=== PATIENT | female | born 1990 | race Caucasian/White ===

== ENCOUNTER → 2016-08-07 | Outpatient (CLI) | payer BC ==
[~2016-08-07] MED LIST: BCP TD
== END ==
LOC: MC.RAD 07:30
DX: Z12.39 Encounter for other screening for malignant neoplasm of breast (principal)

== ENCOUNTER → 2018-03-17 | Outpatient (CLI) | payer BC | LOC: MHCPAIN 14:35 | DX: G89.29 Other chronic pain (principal); M47.817 Spondylosis without myelopathy or radiculopathy, lumbosacral region; M53.3 Sacrococcygeal disorders, not elsewhere classified | CPT/HCPCS: G0463 ==

== ENCOUNTER → 2018-04-01 | Outpatient (CLI) | payer BC | LOC: MHCPAIN 12:53 | DX: M47.817 Spondylosis without myelopathy or radiculopathy, lumbosacral region (principal); M54.16 Radiculopathy, lumbar region | CPT/HCPCS: J1040; Q9967 ==

== ENCOUNTER → 2018-05-04 | Outpatient (CLI) | payer BC | LOC: MHCPAIN 08:10 | DX: G89.29 Other chronic pain (principal); M47.817 Spondylosis without myelopathy or radiculopathy, lumbosacral region; M53.3 Sacrococcygeal disorders, not elsewhere classified | CPT/HCPCS: G0463 ==

== ENCOUNTER 2021-01-04 14:20 | Inpatient (IN) | payer BC ==
[2021-01-04] VITALS (28 sets, daily range): BP systolic 104–164; BP diastolic 56–104; PULSE 81–113; TEMP 97.7–98.3
[~2021-01-04] VITALS: Ht 162.6 cm; Wt 91.8 kg
[2021-01-04] MEDS ORDERED: PRENATAL TABLET PO (14:40)
[2021-01-04] MEDS ORDERED: CALCIUM-500 5001 CTB PO (14:40)
[2021-01-04] MEDS ORDERED: VITAMINC500CH (14:41)
[2021-01-04] MEDS ORDERED: ZOLOFT 25MG25 MG PO (14:41)
--- NOTE | 2021-01-04 14:53 | NUR ---
1430: PT AMBULATORY TO UNIT W/ SPOUSE PAULINE. C/O SROM. ESCORTED TO LR4 AND ORIENTED TO ROOM. CLEAN GOWN ON, EFM/TOCO APPLIED, VS OBTAINS, ASSESSMENTS COMPLETED, POC DISCUSSED. AMNITRACE NEGATIVE. WILL CONTINUE TO MONITOR
[2021-01-04 16:00] LABS: BASO % 0.2 % (0.0-2.0); EOS % 0.3 % (0-4.0); GRAN # 9.8 K/mm3 (1.4-6.5); HEMOGLOBIN 11.5 g/dl (12.5-16.0); LYMPH # 1.8 K/mm3 (1.2-3.4); LYMPH % 14.4 % (20.0-51.0); MEAN CELL VOLUME 86 fl (80.0-100.0); MEAN CORPUSCULAR HEMOGLOBIN 29 pg (27.0-31.0); MEAN CORPUSCULAR HGB CONC 33 g/dl (33.0-37.0); MEAN PLATELET VOLUME 11.8 fl (7.4-10.4); MONO # 0.7 K/mm3 (0.1-0.6); MONO % 5.9 % (1.7-9.3); PLATELET COUNT 235 K/mm3 (130-400); RED BLOOD COUNT 4.04 M/mm3 (4.10-5.30)
[2021-01-04 16:04] LABS: HEMATOCRIT 34.6 % (37.0-47.0)
--- NOTE | 2021-01-04 16:38 | NUR ---
1505: PT. UP TO BATHROOM AND BACK TO BED. STILL C/O LEAKING FLUID. REDID AMNISURE AND IT WAS +. SVE WAS ATTEMPTED. 2CM/-1 STATION. DIFFICULT SVE DUE TO PT. TOLERANCE. IV STARTED, CONSNETS DONE, DISCUSSED POC. 1610: PIT STARTED PER PROTOCOL PER DR. BARRETT
--- NOTE | 2021-01-04 18:18 | NUR ---
FHT: 1500: PT UP TO BR 1515: PT UP TO BR 1600: PT UP TO BR 1615: BROKEN STRIP NOTED 1630: BROKEN STRIP NOTED 1700: PT UP TO BR 1745: PT UP TO BR 1815: PT UP TO BR
--- NOTE | 2021-01-04 23:13 | NUR ---
2255: THIS RN GAVE REPORT TO JOSE RN. PT IN STABLE CONDITION GETTING READY FOR AN EPIDURAL. CARE RELINQUISHED AT THIS TIME
--- NOTE | 2021-01-04 23:25 | NUR ---
2313 SHANDA Cadet to room to place epidural. Patient sits upright on the edge of the bed for this procedure. FHR difficult to monitor in this position and is intermittently tracing. 2325 Test dose administered by SHANDA Cadet. See anesthesia record for details of epidural placement. 2330 Patient wedged to left side.
[2021-01-05] VITALS (53 sets, daily range): BP systolic 90–135; BP diastolic 54–86; PULSE 85–110; TEMP 97.5–101
--- NOTE | 2021-01-05 05:18 | NUR ---
ANCEF 2 GMS GIVEN IVP AT 0450 OVER 5 MINUTES, PT POSITIONED LEFT TILT WITH PEANUT BALL IN PLACE
--- NOTE | 2021-01-05 05:33 | NUR ---
PT BECOMING UPCOMFORTABLE AGAIN, WITH NO RELIEF FROM EPIDURAL TRANSIT CLERK DOSES. SVE /1, MYNOR LAND NOTIFIED PT UNCOMFORTABLE AGAIN, STATES THAT HE WILL BE IN
--- NOTE | 2021-01-05 06:25 | NUR ---
This RN receives report from Silvano BANUELOS. Patient resting and has no needs at this time. 0720: Dr. Alvarez at bedside assessing patient and FHR strip. Discussing the potential need for eventually. SVE-/-2 and plan of care discussed. FHR baseline increasing to 155-160bpm and Roles aware.
--- NOTE | 2021-01-05 06:35 | NUR ---
PROFESSIONAL NURSING ASSISTANT AT BEDSIDE, HAS GIVEN BOLUS WITH NO RELIEF
--- NOTE | 2021-01-05 06:39 | NUR ---
0602 UP ON SIDE OF BED FOR EPIDURAL 0611 TEST DOSE
--- NOTE | 2021-01-05 06:44 | NUR ---
FHT'S INDETERMINENT DUE TO MATERNAL POSITION FOR EPIDURAL, PT TO RIGHT TILT FOLLOWING EPIDURAL PLACEMENT
--- NOTE | 2021-01-05 08:40 | NUR ---
FHR baseline 170-175bpm with subtle late decelerations minimal variability noted. Temperature of patient-101.0 F and Roles on unit and updated. 0900: Roles at bedside and SVE-unchanged. Roles discussing the need for delivery due to no change/FHR/maternal temperature. Risks and benefits discussed. 0910: Patient agrees with plan of csection. Pitocin off at this time. 919: Helio LAND at bedside dosing epidural and talking with patient about plan. Patient prepped for surgery and plan of care discussed/questions answered. 0930: Patient off monitor and to OR.
--- NOTE | 2021-01-05 09:25 | NUR ---
Ambulates to the bathroom. States would like to freshen up. Soap, toothpaste, and tooth brush given. Roles here, visits with her. Lets her know that she could eat some toast.
[2021-01-06] VITALS: BP 130/66; PULSE 96; TEMP 97.2
[2021-01-06 04:00] VITALS: BP 129/78; PULSE 92; TEMP 97.6
[2021-01-06 07:20] VITALS: BP 121/78; PULSE 82; TEMP 98.1
[2021-01-06 16:45] VITALS: BP 126/46; PULSE 95; TEMP 97.4
[2021-01-06 20:33] VITALS: BP 119/74; PULSE 97; TEMP 97.9
[2021-01-07 07:00] VITALS: BP 121/82; PULSE 94; TEMP 97.7
--- NOTE | 2021-01-07 10:38 | NUR ---
Initial visit attempt; Nurse with patient, Clinical Psychology Professor left card of congratulations for her son and information regarding the availability of spiritual care at our hospital.
[2021-01-07] MEDS ORDERED: MOTRIN 800800 MG/TAB PO (15:55)
[2021-01-07] MEDS ORDERED: PERCOCET 325 MG1 TA2 PO (15:55)
[2021-01-07 16:40] VITALS: BP 139/90; PULSE 108; TEMP 97.9
[2021-01-07 18:47] VITALS: BP 129/79; PULSE 94; TEMP 97.5
== END 2021-01-08 09:25 | disposition home or self-care (01) | DRG 786 ==
LOC: LDRO 14:20 → LDR 14:55 → LDRO 15:09 → LDR 15:10 → OB 01-05 11:00
PROVIDERS: Obstetrics & Gynecology; ADMIT Student in an Organized Health Care Education/Training Program
PROC: 10D00Z1 Extraction of Products of Conception, Low, Open Approach (ICD-10-PCS; principal; 2021-01-04)
DX: O99.344 Other mental disorders complicating childbirth (principal); O41.1230 Chorioamnionitis, third trimester, not applicable or unspecified; F41.9 Anxiety disorder, unspecified; F32.A Depression, unspecified; O62.0 Primary inadequate contractions; O76 Abnormality in fetal heart rate and rhythm complicating labor and delivery; O34.593 Maternal care for other abnormalities of gravid uterus, third trimester; N85.8 Other specified noninflammatory disorders of uterus; Z3A.39 39 weeks gestation of pregnancy; Z37.0 Single live birth
CPT/HCPCS: J0171; J0690; J1100; J1885; J2405; J2590; J7120

== ENCOUNTER 2022-11-05 05:47 | Inpatient (IN) | payer BC ==
[~2022-11-05] VITALS: Ht 162.6 cm; Wt 96.0 kg
[~2022-11-05 05:47] MED LIST changes: +CALCIUM-500 5001 CTB PO; +MOTRIN 800800 MG/TAB PO; +PERCOCET 325 MG1 TA2 PO; +PRENATAL TABLET PO; +VITAMINC500CH; +ZOLOFT 25MG25 MG PO
[2022-11-06] VITALS (17 sets, daily range): BP systolic 89–136; BP diastolic 57–112; PULSE 72–91; TEMP 97.7–98
--- NOTE | 2022-11-06 10:15 | NUR ---
1015PT AMBULATORY TO UNIT. 1020THIS RN AT BEDSIDE. PT CHANGES INTO CLEAN GOWN. COMFORTABLE IN BED. THIS RN PLACED TOCO AND EFM. VITAL SIGNS STABLE. EFM TRACING CAT I. DISCUSSED POC WITH PT. PT VERBALIZES UNDERSTANDING. 1025IV STARTED AND LABS DRAWN. IVF STARTED. 1030CONSENTS SIGNED. 1045THIS RN SHAVED PT AND ABD PREP DONE.
[2022-11-06 10:40] LABS: BASO % 0.3 % (0.0-2.0); EOS # 0.1 K/mm3 (0.0-0.7); EOS % 0.7 % (0.0-4.0); GRAN # 7.8 K/mm3 (1.4-6.5); GRAN % 75.1 % (42.2-75.2); HEMATOCRIT 37.1 % (37.0-47.0); LYMPH # 1.8 K/mm3 (1.2-3.4); LYMPH % 17.2 % (20.0-51.0); MEAN CELL VOLUME 86 fl (80.0-100.0); MEAN CORPUSCULAR HEMOGLOBIN 28 pg (27-31); MEAN CORPUSCULAR HGB CONC 32 g/dl (33.0-37.0); MEAN PLATELET VOLUME 11.2 fl (7.4-10.4); MONO # 0.6 K/mm3 (0.1-0.6); MONO % 5.8 % (1.7-9.3); PLATELET COUNT 225 K/mm3 (130-400); RED BLOOD COUNT 4.33 M/mm3 (4.10-5.30); REDCELL DISTRIBUTION WIDTH-CV 13.9 % (11.5-14.5)
[2022-11-07 01:25] VITALS: BP 114/67; PULSE 90; TEMP 98.1
[2022-11-07 07:30] VITALS: BP 128/77; PULSE 78; TEMP 97.5
[2022-11-07] MEDS ORDERED: IBU800 M1 PO (08:42)
[2022-11-07] MEDS ORDERED: PERCOCET 325 MG1 TA2 PO (08:42)
--- NOTE | 2022-11-07 09:18 | NUR ---
Initial visit; Patient thanked Supervisory Cbp Officer for offering congratulations and God's blessings for the of her son. Supervisory Cbp Officer was blessed to offer her son a "Special Sarita" as well.
[2022-11-07 11:30] VITALS: BP 129/70; PULSE 71; TEMP 97.7
[2022-11-07 14:40] VITALS: BP 126/69; PULSE 81; TEMP 97.8
[2022-11-07 19:40] VITALS: BP 133/92; PULSE 94; TEMP 98.5
[2022-11-08 07:40] VITALS: BP 134/79; PULSE 95; TEMP 98
--- NOTE | 2022-11-08 10:45 | NUR ---
DISCHARGE INSTRUCTIONS REVIEWED WITH PT REGARDING FOLLOW-UP APPOINTMENT, PAIN MANAGEMENT, AND INCISION CARE. QUESTIONS INVITED AND ANSWERED. PT VERBALIZES UNDERSTANDING, DISCHARGED HOME, AMBULATES OUT OF FACILITY ACCOMPANIED BY SPOUSE CARRYING BABY AND RN.
== END 2022-11-08 10:55 | disposition home or self-care (01) | DRG 787 ==
LOC: OB 05:47
PROVIDERS: ADMIT Student in an Organized Health Care Education/Training Program
PROC: 10D00Z1 Extraction of Products of Conception, Low, Open Approach (ICD-10-PCS; principal; 2022-11-06)
DX: O34.211 Maternal care for low transverse scar from previous cesarean delivery (principal); B00.89 Other herpesviral infection; O10.92 Unspecified pre-existing hypertension complicating childbirth; O98.52 Other viral diseases complicating childbirth; Z37.0 Single live birth; O34.13 Maternal care for benign tumor of corpus uteri, third trimester; D25.1 Intramural leiomyoma of uterus; O99.62 Diseases of the digestive system complicating childbirth; K21.9 Gastro-esophageal reflux disease without esophagitis; O99.344 Other mental disorders complicating childbirth; F32.A Depression, unspecified; F41.3 Other mixed anxiety disorders; O99.214 Obesity complicating childbirth; R03.0 Elevated blood-pressure reading, without diagnosis of hypertension; Z3A.39 39 weeks gestation of pregnancy
CPT/HCPCS: J0665; J0690; J1100; J1885; J2371; J2405; J2590; J3010; J7120